=== PATIENT | female | born 1970 | race Caucasian/White ===

== ENCOUNTER 2016-09-05 21:01 | Inpatient (IN) ==
[2016-09-05] MEDS ORDERED: LORazepam 2 MG/1 ML VIAL IV STA (21:24)
[2016-09-05] MEDS ORDERED: methylPREDNISolone SOD SUC 125 MG/2 ML VIAL IV STA (21:24)
[2016-09-05] MEDS ORDERED: ASPIRIN 325 MG TABLET PO STA (21:24)
[2016-09-05] MEDS ORDERED: ONDANSETRON 4 MG/2 ML VIAL IV STA (21:24)
[2016-09-05] MEDS ORDERED: ALBUTEROL 2.5 MG/3 ML NEB RESP TX SCH (21:30)
[2016-09-05 21:49] LABS: ABG Base Excess 1.2 MMOL/L (-2.5-2.5); ABG HCO3 25.4 MMOL/L (20-26); ABG Oxygen Saturation 96.2 % (95-100); ABG PCO2 43.5 MM HG (35-48); ABG PH 7.391 (7.35-7.45); ABG PO2 87.3 MM HG (80-95); ABG TCO2 23.3 MMOL/L (23-27); Allen Test Positive; Pt O2 Delivery Device Room Air
[2016-09-05] MEDS ORDERED: ONDANSETRON 4 MG/2 ML VIAL ONE (22:07)
[2016-09-05] MEDS ORDERED: methylPREDNISolone SOD SUC 125 MG/2 ML VIAL ONE (22:07)
[2016-09-05] MEDS ORDERED: LORazepam 2 MG/1 ML VIAL ONE (22:07)
[2016-09-05] MEDS ORDERED: ASPIRIN 325 MG TABLET ONE (22:07)
[2016-09-05 22:21] LABS: Basophils % 0.3 % (0.0-0.8); Eosinophils # 0.1 10*3/uL (0.0-0.87); Eosinophils % 1.1 % (0.00-10.9); Hematocrit 38.9 VOL% (35.7-47.0); Hemoglobin 13.3 GM/DL (12.0-16.0); Immature Granulocytes % 0.4 %; Immature Granulocytes Absolute 0.03 #; Lymphocytes # 3.6 10*3/uL (1.4-4.0); Lymphocytes % 48.1 % (21.3-54.2); Mean Corpuscular HGB Conc 34.2 GM/DL (32-36); Mean Corpuscular Hemoglobin 35 PG (27-34); Mean Corpuscular Volume 101.3 FL (87-102); Mean Platelet Volume 10.5 FL (9.6-12.0); Monocytes # 0.5 10*3/uL (0.11-0.8); Monocytes % 6.7 % (1.7-12.7); Neutrophils # 3.2 10*3/uL (1.4-7.4); Neutrophils % 43.4 % (38.7-73.9); Platelet Count 308 T/CUMM (130-400); Red Blood Count 3.84 MC/CUMM (3.8-5.5); Red Cell Distribution Width 13.3 % (9.3-17.3); White Blood Count 7.5 T/CUMM (4-12)
--- NOTE | 2016-09-05 22:21 | XRay Report ---
XR chest 2V Indication: Shortness of breath. Chest 2 views: Comparison 08/07/2012. The heart size and mediastinal contour are normal. The lungs and pleural spaces are clear. Bones are unremarkable. Impression: Negative chest. PROCEDURE INTERPRETED AT [facility] DEPARTMENT OF RADIOLOGY Final Report Signed by: Michael Mensah M.D.
[2016-09-05 22:31] LABS: Apearance,Urine CLOUDY (Clear); Urine Color Yellow (Yellow); Urine Specific Gravity 1.019 (1.001-1.035)
[2016-09-05 22:32] LABS: Bacteria,Urine Moderate /HPF (Few); Bilirubin,Urine Negative (Negative); Blood, Urine Negative (Negative); Glucose,Urine (UA) Negative (Negative); Ketones,Urine Negative (Negative); Nitrite,Urine Positive (Negative); Protein,Urine Negative; RBC,Urine 7 /HPF (0-4); Renal Epithelial Cells,Urine Occasional /HPF (<1); Squamous Epithelial Cell,Urine Few /HPF (0-10); Urine Urobilinogen < 2.0 EU/DL (0.2-1.0); WBC,Urine 10 /HPF (0-6)
[2016-09-05 22:34] LABS: D-Dimer 1.2 MG/L FEU; INR 0.9; PT Patient Result 9.6 SECS
[2016-09-05 22:42] LABS: Barbiturates Screen,Urine Negative (Negative); Benzodiazepines Screen,Urine Positive (Negative); Cannabinoid Screen,Urine Positive (Negative); Opiate Screen,Urine Positive (Negative); Phencyclidine Screen,Urine Negative (Negative)
[2016-09-05 22:50] LABS: Alanine Aminotransferase 19 U/L (13-56); Albumin 3.2 G/DL (3.4-5.0); Alkaline Phosphatase 66 U/L (45-117); Aspartate Amino Transferase 18 U/L (0-37); Bilirubin,Total < 0.39 MG/DL (0.2-1.0); Blood Urea Nitrogen 12 MG/DL (7-18); Calcium 8.2 MG/DL (8.5-10.1); Glucose 88 MG/DL (74-106); Magnesium 1.8 MG/DL (1.8-2.4); Potassium 4.1 MMOL/L (3.5-5.1); Sodium 143 MMOL/L (136-145); Total Protein 6.2 G/DL (6.4-8.3); Troponin I Only < 0.015 NG/ML (0.00-0.045)
[2016-09-05] MEDS ORDERED: GENTAMICIN 0.3% OPH OINT 3.5 GM TUBE ONE (23:02)
[2016-09-05] MEDS ORDERED: cefTRIAXone 1,000 MG VIAL ONE (23:02)
[2016-09-05] MEDS ORDERED: LEVOFLOXACIN INJ 750 MG in PREMIX 1 EACH IV STA (23:02)
[2016-09-05] MEDS ORDERED: SODIUM CHLORIDE 0.9% 0 ML IV ONE (23:02)
[2016-09-05] MEDS ORDERED: LEVOFLOXACIN INJ 150 ML IV ONE (23:03)
[2016-09-05] MEDS ORDERED: GENTAMICIN 0.3% OPH OINT 3.5 GM TUBE LEFT EYE STA (23:06)
--- NOTE | 2016-09-05 23:09 | Emergency Department Note ---
Henry Ann Brittany, am scribing for, and in the presence of, Jhon Hess MD 21:28. Jimena Ann Charles R, MD, personally performed the services described in this documentation, ascribed by Mary Figueroa in my presence, and it is both accurate and complete . Arrival - Arrival Chief Complaint: Shortness of Breath Stated Complaint: sob ED Nursing Triage Note: Patient to triage with c/o SOB/CP x 3 days and panic attacks. Patient wakes up out of her sleep gasping for air. Patient has COPD and is a smoker. Mode of Arrival: Ambulatory Limitations: No Limitations Source: Patient, RN Notes Reviewed Time Seen by Provider: 09/05/16 21:17 - History of Present Illness HPI Narrative: Patient is a 45 y/o white female presenting to the ED with c/o CP and SOB with an onset of 2 days. Patient reports that chest pain occurs mid-sternally, occurring most often upon exertional activities such as walking, but is better at rest. She has had some anxiety attacks as well, contributing these to recent onset of these symptoms. She often wakes out of her sleep short of breath and gasping for air. She denies having any associated diaphoresis, nausea, vomiting , arm pain, or neck pain. Patient complains of some left eye pain with associated redness and irritation that has been ongoing for several days. She is a current everyday smoker. Patient has no other complaint/pain in the ED at this time. Onset (ago): day(s) (2) Consistency: constant Severity: moderate Severity scale (1-10): 6 Quality: aching Date of Last Menstrual Period: HYST Allergies/Adverse Reactions: Allergies Allergy/AdvReac Type Severity Reaction Status Date / Time Penicillins AdvReac RASH Verified 09/05/16 21:12 sulfamethoxazole AdvReac RASH Verified 09/05/16 21:12 [From Bactrim] trimethoprim [From Bactrim] AdvReac RASH Verified 09/05/16 21:12 Home Medications: Home Medications Medication Instructions Recorded Confirmed Type No Known Home Medications [No 09/05/16 09/05/16 History Known Home Medications] Review of System - Review of System 12 point system: reviewed and no additional remarkable complaints except as stated - Review of System Constitutional: Absent: chills, diaphoresis, fever Eyes: Present: pain (left), redness (left). Absent: vision change Head/Ears/Nose/Throat: Absent: nasal drainage, sore throat Respiratory: Present: respiratory distress Cardiovascular: Present: chest pain Gastrointestinal: Absent: abdominal pain, nausea, vomiting, diarrhea, constipation Genitourinary female: Absent: dysuria, frequency, urgency Musculoskeletal: Absent: arm pain, back pain, leg pain, neck pain Skin: Absent: rash Neurological: Absent: headache Psychiatric: Present: anxiety. Absent: depression Medical,Surgical,& Family Hx - Medical History Psychological: History of: Depression Endocrine: History of: Thyroid Disorder Respiratory: History of: COPD Gastrointestinal: History of: Hepatitis (Hep C), GI Problems (hiatal hernia) - Surgical History Reproductive Surgeries: Surgical HX of;: Hysterectomy - Family History Family History: noncontributory - Social History Smoking Status: Current every day smoker Frequency of Alcohol Use: Occasionally Type of Drug Use: None Exam Vital Signs: Vital Signs Temperature 98.2 F 09/05/16 21:04 Pulse Rate 112 H 09/05/16 22:00 Respiratory Rate 22 09/05/16 22:00 Blood Pressure 110/70 09/05/16 22:00 O2 Sat by Pulse Oximetry 97 09/05/16 22:00 - General General appearance: alert, in no apparent distress, other (smells of cigarettes) - Head Head exam: Present: atraumatic, normocephalic, normal inspection - Eye Eye exam: Present: PERRL, EOMI, conjunctival injection (left eye has a conjunctival injection, appears to be pink eye, irritated, no drainage noted) - ENT ENT exam: Present: normal exam, normal oropharynx - Neck Neck exam: Present: normal inspection, full ROM, trachea midline - Chest Chest inspection: Present: symmetric chest wall rise. Absent: normal inspection (barrel chest) - Respiratory Respiratory exam: Present: rhonchi (harsh rhonchi bilaterally), wheezes ( bilaterally). Absent: normal lung sounds bilaterally (decreased breath sounds bilaterally) - Cardiovascular Cardiovascular exam: Present: normal rhythm, tachycardia, normal heart sounds. Absent: regular rate - Abdominal Exam Abdominal exam: Present: soft, normal bowel sounds. Absent: tenderness - Extremities Exam Extremities exam: Present: normal inspection - Back Exam Back exam: Present: normal inspection - Neurological Exam Neurological exam: Present: alert, oriented X3, CN II-XII intact. Absent: motor sensory deficit - Psychiatric Psychiatric exam: Present: normal affect, normal mood - Skin Skin exam: Present: warm, dry Course - Reevaluation(s) Reevaluation #1: Patient was reevaluated. I had a long talk with her about her substance abuse. She is positive for marijuana opiates and benzos. States she is ran out of her benzodiazepines and she takes pain medication even though she has no doctor he has had no prescription form. She is also positive for cannabis which she states she takes recreational.. I advised the patient that we do not euthanize patient down here we do not give heavy narcotics include opiates and benzodiazepines when they are he taken them including illegal drugs like marijuana. I did treat her anxiety tonight with him Ativan IV I did give her pain medication by mouth. Patient has difficulty breathing I told her by giving her too many narcotics she can actually stop breathing and we did not want to do that. Patient also was treated for her left conjunctivitis in her eye with gentamicin ointment. After explaining all this to the patient she states she will be compliant and she will stay for admission to the hospital while we treat her COPD exacerbation and a urinary tract infection along with her conjunctivitis but we will not give her heavy doses of narcotics that she is asking for because of the dangers they can cause especially with her breathing. Time: 23:07 - Consultations Consultation #1: Hospitalist will admit patient Time: 23:07 Results - Labs CBC & BMP: 09/05/16 21:24 09/05/16 21:24 Lab Results: I have reviewed the patients labs Labs: Laboratory Tests 09/05/16 21:34 ABG pH 7.391 ABG pCO2 43.5 ABG pO2 87.3 ABG HCO3 25.4 ABG Total CO2 23.3 ABG O2 Saturation 96.2 ABG Base Excess 1.2 FiO2 21.00 Laboratory Tests 09/05/16 09/05/16 21:24 22:02 WBC 7.5 RBC 3.84 Hgb 13.3 Hct 38.9 MCH 35 H Plt Count 308 Urine Color Yellow Urine Appearance Cloudy Urine pH 5.0 Ur Specific [place] 1.019 Urine Protein Negative Urine Glucose (UA) Negative Urine Ketones Negative Urine Blood Negative Urine Nitrate Positive H Urine Bilirubin Negative Urine Urobilinogen < 2.0 H Urine Leukocytes Small H Urine RBC 7 Urine WBC 10 Ur Squamous Epith Cells Few Ur Renal Epithelial Cell Occasional Urine Bacteria Moderate Laboratory Tests 09/05/16 21:24 INR 0.9 PT Patient/Control Mix 9.6 D-Dimer, Quantitative 1.2 Laboratory Tests 09/05/16 09/05/16 09/05/16 21:24 22:02 22:02 Sodium 143 Potassium 4.1 Chloride 106 Carbon Dioxide 28 Anion Gap 13.1 BUN 12 Creatinine 0.80 GFR Calculation 75 BUN/Creatinine Ratio 15.00 Glucose 88 Calculated Osmolality 283.0 Calcium 8.2 L Magnesium 1.8 Total Bilirubin < 0.39 AST 18 ALT 19 Alkaline Phosphatase 66 Troponin I < 0.015 Total Protein 6.2 L Albumin 3.2 L Globulin 3.0 Albumin/Globulin Ratio 1.0 L Urine Color Yellow Urine Appearance Cloudy Urine pH 5.0 Ur Specific [place] 1.019 Urine Protein Negative Urine Glucose (UA) Negative Urine Ketones Negative Urine Blood Negative Urine Nitrate Positive H Urine Bilirubin Negative Urine Urobilinogen < 2.0 H Urine Leukocytes Small H Urine RBC 7 Urine WBC 10 Ur Squamous Epith Cells Few Ur Renal Epithelial Cell Occasional Urine Bacteria Moderate Urine Opiates Screen Positive H Ur Barbiturates Screen Negative Ur Phencyclidine Scrn Negative U Amphetamine/Methamph Negative U Benzodiazepines Scrn Positive H U Cocaine Metab Screen Negative U Cannabinoids Screen Positive H - Diagnostic Findings Procedure: Chest x-ray: report reviewed by me (Negative chest.) Disposition Clinical Impression: Acute exacerbation of chronic obstructive airways disease, Acute dyspnea, Left conjunctivitis, UTI (urinary tract infection), Tobacco abuse, Cannabis abuse, Generalized anxiety disorder, Polysubstance abuse Case discussed with: patient, patient's family Disposition: Still a Patient Condition: Stable Time of Disposition: 23:04
--- NOTE | 2016-09-05 23:40 | Hospitalist History & Physical ---
Assessment and Plan (1) Acute dyspnea Status: Acute Current Visit: Yes (2) Acute exacerbation of chronic obstructive airways disease Status: Acute Current Visit: Yes (3) Generalized anxiety disorder Status: Acute Current Visit: Yes (4) Left conjunctivitis Status: Acute Current Visit: Yes (5) Polysubstance abuse Status: Acute Current Visit: Yes (6) Tobacco abuse Status: Acute Current Visit: Yes (7) UTI (urinary tract infection) Status: Acute Assessment and plan: Our plan for this patient will be admitting her to our service will schedule her on breathing treatments and steroids. Patient has a high expectation for treating her pain. IV pain medicine will not be used for this patient. Patient will also be placed on antibiotics and we will treat her urinary tract infection. Current Visit: Yes History of Present Illness Chief complaint: Shortness of breath History of present illness: Ms. Mayberry is a 45 year old female with past medical history significant for anxiety, chronic back pain, thyroid disorder, and depression who presents with shortness of breath 2-1/2 days. She reports that her wheezing is increased. She has been feeling hot. She is been having a productive cough with green sputum. Patient also is complaining about drainage from her left eye. I was consulted to admit her. Home Medications Medication Instructions Recorded Confirmed Type No Known Home Medications [No 09/05/16 09/05/16 History Known Home Medications] Allergies Allergy/AdvReac Type Severity Reaction Status Date / Time Penicillins AdvReac RASH Verified 09/05/16 21:12 sulfamethoxazole AdvReac RASH Verified 09/05/16 21:12 [From Bactrim] trimethoprim [From Bactrim] AdvReac RASH Verified 09/05/16 21:12 Medical,Surgical,& Family Hx - Medical History Psychological: History of: Depression Endocrine: History of: Thyroid Disorder Respiratory: History of: COPD Gastrointestinal: History of: Hepatitis (Hep C), GI Problems (hiatal hernia) - Surgical History Reproductive Surgeries: Surgical HX of;: Hysterectomy - Family History Family History: Reports;: Family Cancer, Family Heart Disease, Family Hypertension - Social History Smoking Status: Current every day smoker Frequency of Alcohol Use: Occasionally Type of Drug Use: None 12 point system: reviewed and no additional remarkable complaints except as stated Exam - Constitutional Vitals: Period Temp Pulse Resp BP Sys/Maddox Pulse Ox Last 24 Hr 98.2 F-98.2 F 108-114 19-22 110-130/70-91 97-98 - General General appearance: alert, in no apparent distress - Head Head exam: Present: atraumatic, normocephalic, normal inspection - Eye Eye exam: Present: PERRL, EOMI, conjunctival injection - ENT ENT exam: Present: normal exam, normal oropharynx - Neck Neck exam: Present: normal inspection, full ROM, trachea midline - Chest Chest inspection: Present: symmetric chest wall rise. - Respiratory Respiratory exam: Harsh rhonchi bilaterally and wheezing - Cardiovascular Cardiovascular exam: Present: normal rhythm, tachycardia, normal heart sounds. Absent: regular rate - Abdominal Exam Abdominal exam: Present: soft, normal bowel sounds. Absent: tenderness - Extremities Exam Extremities exam: Present: normal inspection - Back Exam Back exam: Present: normal inspection - Neurological Exam Neurological exam: Present: alert, oriented X3, CN II-XII intact. Absent: motor sensory deficit - Psychiatric Psychiatric exam: Present: normal affect, normal mood - Skin Skin exam: Present: warm, dry Results - Labs CBC & BMP: 09/05/16 21:24 09/05/16 21:24
[2016-09-06] MEDS ORDERED: ALBUTEROL 1.25 MG/3 ML NEB RESP TX PRN (00:22)
[2016-09-06] MEDS ORDERED: ONDANSETRON 4 MG/2 ML VIAL IV PRN (00:22)
[2016-09-06] MEDS ORDERED: NICOTINE 21 MG/24 HR PATCH TRANSDERM PRN (00:22)
[2016-09-06] MEDS: ALBUTEROL/IPRATROPIUM 3 ML NEB RESP TX SCH ×3 (00:30→12:45)
[2016-09-06] MEDS: ALPRAZolam 0.25 MG TABLET PO PRN ×3 (00:48→11:22)
[2016-09-06] MEDS: SODIUM CHLORIDE 0.9% 1,000 ML IV SCH ×2 (00:56→09:50)
[2016-09-06] MEDS ORDERED: GENTAMICIN 0.3% OPH OINT 3.5 GM TUBE RIGHT EYE SCH (02:00)
[2016-09-06] MEDS: GENTAMICIN 0.3% OPH SOLN 5 ML BOTTLE LEFT EYE SCH ×4 (03:46→15:37)
--- NOTE | 2016-09-06 06:03 | EKG Report ---
Stationary ECG Study [facility] ER Test Date: 09/05/2016 9:09:41 PM Pat Name: SELMA RAMON Department: Room: 540 Gender: F Health And Physical Education Teacher: Sayda : 1970 Requested by: Jhon Montejo Order Number: [id number] Reading MD: ELIER LOWE Intervals [place] Rate: 110 P: 67 [place]: 154 QRS: 78 QRSD: 78 T: 67 QT: 330 QTc: 395 Interpretive Statements SINUS TACHYCARDIA POOR QUALITY BASELINE Electronically Signed On 09-06-16 17:11:17 CDT by ELIER LOWE [email or web address]
[2016-09-06] MEDS: methylPREDNISolone SOD SUC 125 MG/2 ML VIAL IV SCH ×2 (06:13→15:37)
[2016-09-06 06:45] LABS: Basophils % 0.2 % (0.0-0.8); Hematocrit 35.7 VOL% (35.7-47.0); Hemoglobin 11.6 GM/DL (12.0-16.0); Immature Granulocytes % 0.5 %; Immature Granulocytes Absolute 0.03 #; Lymphocytes # 0.7 10*3/uL (1.4-4.0); Lymphocytes % 10.1 % (21.3-54.2); Mean Corpuscular HGB Conc 32.5 GM/DL (32-36); Mean Corpuscular Hemoglobin 33 PG (27-34); Mean Corpuscular Volume 100.8 FL (87-102); Mean Platelet Volume 10.8 FL (9.6-12.0); Monocytes # 0.1 10*3/uL (0.11-0.8); Monocytes % 1.4 % (1.7-12.7); Neutrophils # 5.6 10*3/uL (1.4-7.4); Neutrophils % 87.8 % (38.7-73.9); Platelet Count 290 T/CUMM (130-400); Red Blood Count 3.54 MC/CUMM (3.8-5.5); Red Cell Distribution Width 13.2 % (9.3-17.3); White Blood Count 6.4 T/CUMM (4-12)
[2016-09-06 07:07] LABS: Hypochromasia 1+; Lymphocytes 11 % (20-55); Platelet Estimate Adequate; Segmented Neutrophils 89 % (50-85); Total Cells Counted 100
[2016-09-06 07:16] LABS: Albumin 2.9 G/DL (3.4-5.0); Bilirubin,Total 0.9 MG/DL (0.2-1.0); Calcium 8.4 MG/DL (8.5-10.1); Osmolality,Calculated 286.1 MOS/KG (273-304); Potassium 4.5 MMOL/L (3.5-5.1); Risk Ratio 2.91; Total Protein 5.7 G/DL (6.4-8.3); VLDL CHOLESTEROL 16.2 MG/DL
--- NOTE | 2016-09-06 07:59 | EKG Report ---
Stationary ECG Study [facility] Test Date: 09/06/2016 7:58 AM Pat Name: SELMA RAMON Department: Room: 540 Gender: F Petroleum Production Engineer: MARCELO : 1970 Requested by: Jhon Montejo Order Number: [id number] Reading MD: OWEN MARIE Intervals [place] Rate: 97 P: 71 [place]: 154 QRS: 70 QRSD: 78 T: 75 QT: 368 QTc: 423 Interpretive Statements SINUS RHYTHM Electronically Signed On 09-07-16 08:09:43 CDT by OWEN MARIE [email or web address]
--- NOTE | 2016-09-06 08:24 | XRay Report ---
XR chest 2V Indication: SOB Comparison: Chest x-ray dated September 05, 2016 Technique: Frontal and lateral views of the chest. Findings: The cardiomediastinal silhouette is stable in configuration. The lungs are mildly hyperexpanded. Question emphysematous change. No focal consolidation, pleural effusion, or pneumothorax. Visualized osseous and surrounding soft tissue structures appear grossly unchanged. IMPRESSION: Stable chest x-ray without acute cardiopulmonary process demonstrated. PROCEDURE INTERPRETED AT [facility] DEPARTMENT OF RADIOLOGY Final Report Signed by: Dr Macario Cornelius
[2016-09-06] MEDS ORDERED: ENOXAPARIN 40 MG/0.4 ML SYRINGE SUBCUT SCH (09:00)
[2016-09-06] MEDS ORDERED: PANTOPRAZOLE 40 MG TABLET PO SCH (09:00)
--- NOTE | 2016-09-06 10:07 | Pulmonology Consult Note ---
Assessment and Plan (1) Acute exacerbation of chronic obstructive airways disease Status: Acute Assessment and plan: Patient is admitted with a mild COPD exacerbation. She is not having any respiratory distress now and her lungs sound okay. She can probably go home on tapering steroids and some bronchodilators. She certainly needs to quit smoking. Current Visit: Yes (2) Tobacco abuse Status: Acute Assessment and plan: She says she is only smoking 3 cigarettes a day but she certainly needs to quit. Current Visit: Yes (3) Polysubstance abuse Status: Acute Assessment and plan: She had a positive drug screen from multiple medications. She may be having mild withdrawal. Current Visit: Yes History of Present Illness Chief complaint: Shortness of History of present illness: Ms. Mayberry is a 45 year old white female that is a smoker and has some chronic anxiety problems. She takes thyroid replacement. She came in with a couple days of coughing and shortness of breath. She was wheezing and felt more short of breath so she came to the emergency room. She was admitted with a mild exacerbation of her COPD. She says she smokes about 3 cigarettes a day. She says she is unable to buy any medicines. Home Medications Medication Instructions Recorded Confirmed Type No Known Home Medications [No 09/05/16 09/05/16 History Known Home Medications] Allergies Allergy/AdvReac Type Severity Reaction Status Date / Time Penicillins AdvReac RASH Verified 09/06/16 02:45 sulfamethoxazole AdvReac RASH Verified 09/06/16 02:45 [From Bactrim] trimethoprim [From Bactrim] AdvReac RASH Verified 09/06/16 02:45 - Constitutional Constitutional: Present: fatigue. Absent: chills, fever(s) - EENT Eyes: Absent: loss of vision Ears: Absent: decreased hearing Nose, mouth and throat: Absent: dysphagia, headache(s), sinus pressure - Cardiovascular Cardiovascular: Present: dyspnea. Absent: chest pain at rest, edema, orthopnea , palpitations - Respiratory Respiratory: Present: cough, dyspnea, wheezing. Absent: hemoptysis, change in phlegm color - Gastrointestinal Gastrointestinal: Absent: abdominal pain, change in bowel habits, dysphagia, nausea, vomiting - Genitourinary Genitourinary: Absent: difficulty urinating, dysuria, hematuria, urinary frequency - Musculoskeletal Musculoskeletal: Absent: arthralgias - Neurological Neurological: Absent: abnormal speech, focal weakness - Psychiatric Psychiatric: Present: anxiety Exam (Pulmonay) H&P - Constitutional Vitals: Period Temp Pulse Resp BP Sys/Maddox Pulse Ox Last 24 Hr 96.9 F-98.2 F 89-115 17-22 103-136/65-94 96-99 General appearance: normal weight, no acute distress (She is sitting in the room crying but is in no respiratory distress) - Head Head exam: Present: normal inspection, normocephalic - Eye Eye exam: Present: EOMI. Absent: scleral icterus Pupils: Present: YOGESH - ENT ENT exam: Present: normal exam - Neck Neck exam: Present: normal inspection. Absent: lymphadenopathy, thyromegaly - Respiratory Respiratory exam: Present: rhonchi, other (Her lungs sound reasonably clear at present.). Absent: accessory muscle use, rales, wheezes - Cardiovascular Cardiovascular exam: Present: regular rate and rhythm. Absent: gallop, systolic murmur - GI/Abdominal GI/Abdominal exam: Present: normal bowel sounds, soft. Absent: organomegaly, tenderness - Extremities Exam Extremities exam: Absent: calf tenderness, edema - Neurological Exam Neurological exam: Present: alert, oriented X3 - Psychiatric Psychiatric exam: Present: anxious - Skin Skin exam: Present: warm, dry Medical,Surgical,& Family Hx - Medical History Psychological: History of: Anxiety Disorders, Depression Endocrine: History of: Thyroid Disorder (hypoactive) Respiratory: History of: COPD Gastrointestinal: History of: Hepatitis (Hep C), GI Problems (hiatal hernia) - Surgical History Reproductive Surgeries: Surgical HX of;: Hysterectomy - Family History Family History: Reports;: Family Cancer, Family Heart Disease, Family Hypertension - Social History Smoking Status: Current every day smoker Frequency of Alcohol Use: Occasionally Type of Drug Use: Marijuana Results - Labs CBC & BMP: 09/06/16 06:03 09/06/16 06:03 Labs: Her PO2 is 87 with a PCO2 of 43 and a pH of 7.39 yesterday. - Diagnostic Findings Procedure: Chest x-ray: image reviewed by me, report reviewed by me (Chest x- ray suggest COPD changes but no infiltrates.)
[2016-09-06 11:10] VITALS: BP 104/71
--- NOTE | 2016-09-06 15:02 | Discharge Summary ---
Hospital Course - Hospital Course Hospital Course: Ms. Mayberry presented with shortness of breath and anxiety. She was evaluated by the admitting physician and determined to have mild COPD. She was admitted for treatment and was initiated on IV antibiotics and IV steroids with breathing treatments. She tolerated this well. Patient requested several times to leave the hospital floor to smoke which she was denied and became extremely anxious. Due to being denied to leave the hospital to smoke she threatened to leave AMA and at one point even to commit suicide. When I evaluated her, she adamantly denied she is suicidal or has suicidal thoughts. She even denied making that statement. Regardless, [facility] was [facility]. She was evaluated by [facility], which is our only method of psychiatric evaluation, and cleared from their perspective for discharge. She was offered treatment by [facility] and refused. She was given instructions how to seek care once discharged. By discharge, she had met maximum benefit of hospitalization. Treatment of her COPD exacerbation will occur on an outpatient with oral steroids and antibiotics. She was encouraged to discontinue smoking and nicotine patches were prescribed. I spent 45 minutes coordinating this discharge. - Time spent with patient Time with patient DS: Greater than 30 minutes Discharge Plan - Discharge Data Disposition: Disch To Home/Self Care Condition at Discharge: Stable Discharge Diet: advance to your usual diet Activity: resume usual activities as tolerated - Discharge Medications New Levofloxacin Tab [Levaquin Tab] 500 mg PO DAILY #6 tablet Nicotine 21 mg/24 Hr Patch [Nicoderm CQ 21 mg/24 hr Patch] 1 patch TRANSDERM DAILY PRN #30 patch PRN Reason: Nicotine Cravings predniSONE TAB [PredniSONE] 50 mg PO DAILY #4 tablet Ciprofloxacin HCl [Ciprofloxacin 0.3% Oph Soln] 2 drop BOTH EYES Q2H #5 ml - Follow Up or Referral - Forms/Instructions Instructions: Urinary Tract Infection in Women (GEN), Conjunctivitis (GEN) Exam - Constitutional Vitals: Period Temp Pulse Resp BP Sys/Maddox Pulse Ox Last 24 Hr 96.9 F-98.2 F 89-115 17-22 103-136/65-94 95-99 General appearance: normal weight, no acute distress - Head Head exam: Present: normal inspection, normocephalic, atraumatic - Eye Eye exam: Present: EOMI Pupils: Present: YOGESH - ENT ENT exam: Present: normal exam - Neck Neck exam: Present: normal inspection - Respiratory Respiratory exam: Present: clear to auscultation bilaterally. Absent: accessory muscle use, prolonged expiratory phase, wheezes - Cardiovascular Cardiovascular exam: Present: regular rate and rhythm. Absent: bradycardia, irregular rhythm, systolic murmur - GI/Abdominal GI/Abdominal exam: Present: normal bowel sounds. Absent: ascites, hypoactive bowel sounds, tenderness - Extremities Exam Extremities exam: Present: normal inspection Discharge Results Procedures and tests throughout hospitalization: Pending Orders 09/05/16 Urine Culture Routine 09/05/16 21:24 Blood Culture Stat Labs on day of discharge: Labs from last 24 hours 09/06/16 09/06/16 09/06/16 06:03 06:03 00:46 WBC 6.4 RBC 3.54 L Hgb 11.6 L Hct 35.7 MCV 100.8 MCH 33 MCHC 32.5 RDW 13.2 Plt Count 290 MPV 10.8 Neut % (Auto) 87.8 H Lymph % (Auto) 10.1 L Phelps % (Auto) 1.4 L Eos % (Auto) 0.0 Baso % (Auto) 0.2 Neut # (Auto) 5.6 Lymph # (Auto) 0.7 L Phelps # (Auto) 0.1 L Eos # (Auto) 0.0 Baso # (Auto) 0.0 Total Counted 100 Immature Gran % 0.5 Nucleated RBC % 0.0 Immature Gran # 0.03 Segmented Neutrophils 89 H Lymphocytes 11 L Nucleated RBCs # 0.00 Platelet Estimate Adequate Hypochromasia 1+ Morphology Comment INR PT Patient/Control Mix D-Dimer, Quantitative ABG pH ABG pCO2 ABG pO2 ABG HCO3 ABG Total CO2 ABG O2 Saturation ABG Base Excess FiO2 Sodium 142 Potassium 4.5 Chloride 110 H Carbon Dioxide 25 Anion Gap 11.5 BUN 18 Creatinine 0.70 GFR Calculation 89 BUN/Creatinine Ratio 25.00 H Glucose 139 H Calculated Osmolality 286.1 Calcium 8.4 L Magnesium 2.0 Total Bilirubin 0.90 AST 14 ALT 19 Alkaline Phosphatase 48 Troponin I B-Natriuretic Peptide Total Protein 5.7 L Albumin 2.9 L Globulin 2.8 Albumin/Globulin Ratio 1.0 L Triglycerides 81 Cholesterol 137 LDL Cholesterol 72.0 VLDL Cholesterol 16.2 HDL Cholesterol 47 Heart Disease Risk Ratio 2.91 Free T4 1.31 TSH 3rd Generation Urine Color Urine Appearance Urine pH Ur Specific [place] Urine Protein Urine Glucose (UA) Urine Ketones Urine Blood Urine Nitrate Urine Bilirubin Urine Urobilinogen Urine Leukocytes Urine RBC Urine WBC Ur Squamous Epith Cells Ur Renal Epithelial Cell Urine Bacteria Ur Culture Indicated? Urine Opiates Screen Ur Barbiturates Screen Ur Phencyclidine Scrn U Amphetamine/Methamph U Benzodiazepines Scrn U Cocaine Metab Screen U Cannabinoids Screen 09/06/16 09/05/16 09/05/16 00:45 22:02 22:02 WBC RBC Hgb Hct MCV MCH MCHC RDW Plt Count MPV Neut % (Auto) Lymph % (Auto) P[place]ps % (Auto) Eos % (Auto) Baso % (Auto) Neut # (Auto) Lymph # (Auto) Phelps # (Auto) Eos # (Auto) Baso # (Auto) Total Counted Immature Gran % Nucleated RBC % Immature Gran # Segmented Neutrophils Lymphocytes Nucleated RBCs # Platelet Estimate Hypochromasia Morphology Comment INR PT Patient/Control Mix D-Dimer, Quantitative ABG pH ABG pCO2 ABG pO2 ABG HCO3 ABG Total CO2 ABG O2 Saturation ABG Base Excess FiO2 Sodium Potassium Chloride Carbon Dioxide Anion Gap BUN Creatinine GFR Calculation BUN/Creatinine Ratio Glucose Calculated Osmolality Calcium Magnesium Total Bilirubin AST ALT Alkaline Phosphatase Troponin I B-Natriuretic Peptide Total Protein Albumin Globulin Albumin/Globulin Ratio Triglycerides Cholesterol LDL Cholesterol VLDL Cholesterol HDL Cholesterol Heart Disease Risk Ratio Free T4 TSH 3rd Generation 0.032 L Urine Color Yellow Urine Appearance Cloudy Urine pH 5.0 Ur Specific [place] 1.019 Urine Protein Negative Urine Glucose (UA) Negative Urine Ketones Negative Urine Blood Negative Urine Nitrate Positive H Urine Bilirubin Negative Urine Urobilinogen < 2.0 H Urine Leukocytes Small H Urine RBC 7 Urine WBC 10 Ur Squamous Epith Cells Few Ur Renal Epithelial Cell Occasional Urine Bacteria Moderate Ur Culture Indicated? Results to follow Urine Opiates Screen Positive H Ur Barbiturates Screen Negative Ur Phencyclidine Scrn Negative U Amphetamine/Methamph Negative U Benzodiazepines Scrn Positive H U Cocaine Metab Screen Negative U Cannabinoids Screen Positive H 09/05/16 09/05/16 09/05/16 21:34 21:24 21:24 WBC RBC Hgb Hct MCV MCH MCHC RDW Plt Count MPV Neut % (Auto) Lymph % (Auto) Phelps % (Auto) Eos % (Auto) Baso % (Auto) Neut # (Auto) Lymph # (Auto) Phelps # (Auto) Eos # (Auto) Baso # (Auto) Total Counted Immature Gran % Nucleated RBC % Immature Gran # Segmented Neutrophils Lymphocytes Nucleated RBCs # Platelet Estimate Hypochromasia Morphology Comment INR PT Patient/Control Mix D-Dimer, Quantitative ABG pH 7.391 ABG pCO2 43.5 ABG pO2 87.3 ABG HCO3 25.4 ABG Total CO2 23.3 ABG O2 Saturation 96.2 ABG Base Excess 1.2 FiO2 21.00 Sodium 143 Potassium 4.1 Chloride 106 Carbon Dioxide 28 Anion Gap 13.1 BUN 12 Creatinine 0.80 GFR Calculation 75 BUN/Creatinine Ratio 15.00 Glucose 88 Calculated Osmolality 283.0 Calcium 8.2 L Magnesium 1.8 Total Bilirubin < 0.39 AST 18 ALT 19 Alkaline Phosphatase 66 Troponin I < 0.015 B-Natriuretic Peptide 3 Total Protein 6.2 L Albumin 3.2 L Globulin 3.0 Albumin/Globulin Ratio 1.0 L Triglycerides Cholesterol LDL Cholesterol VLDL Cholesterol HDL Cholesterol Heart Disease Risk Ratio Free T4 TSH 3rd Generation Urine Color Urine Appearance Urine pH Ur Specific [place] Urine Protein Urine Glucose (UA) Urine Ketones Urine Blood Urine Nitrate Urine Bilirubin Urine Urobilinogen Urine Leukocytes Urine RBC Urine WBC Ur Squamous Epith Cells Ur Renal Epithelial Cell Urine Bacteria Ur Culture Indicated? Urine Opiates Screen Ur Barbiturates Screen Ur Phencyclidine Scrn U Amphetamine/Methamph U Benzodiazepines Scrn U Cocaine Metab Screen U Cannabinoids Screen 09/05/16 09/05/16 21:24 21:24 WBC 7.5 RBC 3.84 Hgb 13.3 Hct 38.9 MCV 101.3 MCH 35 H MCHC 34.2 RDW 13.3 Plt Count 308 MPV 10.5 Neut % (Auto) 43.4 Lymph % (Auto) 48.1 Phelps % (Auto) 6.7 Eos % (Auto) 1.1 Baso % (Auto) 0.3 Neut # (Auto) 3.2 Lymph # (Auto) 3.6 Phelps # (Auto) 0.5 Eos # (Auto) 0.1 Baso # (Auto) 0.0 Total Counted Immature Gran % 0.4 Nucleated RBC % 0.0 Immature Gran # 0.03 Segmented Neutrophils Lymphocytes Nucleated RBCs # 0.00 Platelet Estimate Hypochromasia Morphology Comment INR 0.9 PT Patient/Control Mix 9.6 D-Dimer, Quantitative 1.2 ABG pH ABG pCO2 ABG pO2 ABG HCO3 ABG Total CO2 ABG O2 Saturation ABG Base Excess FiO2 Sodium Potassium Chloride Carbon Dioxide Anion Gap BUN Creatinine GFR Calculation BUN/Creatinine Ratio Glucose Calculated Osmolality Calcium Magnesium Total Bilirubin AST ALT Alkaline Phosphatase Troponin I B-Natriuretic Peptide Total Protein Albumin Globulin Albumin/Globulin Ratio Triglycerides Cholesterol LDL Cholesterol VLDL Cholesterol HDL Cholesterol Heart Disease Risk Ratio Free T4 TSH 3rd Generation Urine Color Urine Appearance Urine pH Ur Specific [place] Urine Protein Urine Glucose (UA) Urine Ketones Urine Blood Urine Nitrate Urine Bilirubin Urine Urobilinogen Urine Leukocytes Urine RBC Urine WBC Ur Squamous Epith Cells Ur Renal Epithelial Cell Urine Bacteria Ur Culture Indicated? Urine Opiates Screen Ur Barbiturates Screen Ur Phencyclidine Scrn U Amphetamine/Methamph U Benzodiazepines Scrn U Cocaine Metab Screen U Cannabinoids Screen Preliminary micro results at discharge 09/05/16 Unknown Urine Culture - Preliminary Urine,Voided Gram Negative Rods DS: Provider Date of admission: 09/05/16 23:13 Primary care physician: . No PCP Attending physician on admission: Michael Bahena MD Consults: 09/06/16 00:22 Consult to Case Mgmt/Social Srvs [CONS] Routine Reason for Case Mgmt/Social Srvs: Discharge Planning Consult to Physician [CONS] Routine Comment: COPD Consulting Provider: Asif Bearden When should Consulting Provider be notified: In am Person Notified: Dmitriy Date Notified: 09/06/16 Time Notified: 09:14 Consult Notification Comment: 09/06/16 09:49 Consult to Case Mgmt/Social Srvs [CONS] Routine Reason for Case Mgmt/Social Srvs: Psychiatric Management Consult Comment: sucide consult Discharging clinician: Mallory Parrish MD Expected date of discharge: 09/06/16
[2016-09-06] MEDS ORDERED: LEVOFLOXACIN INJ 750 MG in PREMIX 1 EACH IV SCH (21:00)
== END 2016-09-06 15:00 | disposition home or self-care (01) | DRG 191 ==
LOC: N.ED 21:01 → SUATTDRO 23:13 → N.EDINP 23:13 → N.5E 23:33
PROVIDERS: ADMIT Internal Medicine; ATTEND Internal Medicine

== ENCOUNTER 2019-08-19 07:48 | Inpatient (IN) ==
[2019-08-19 08:43] LABS: Basophils % 0.7 % (0.0-0.8); Eosinophils # 0.1 10*3/uL (0.0-0.87); Eosinophils % 2.2 % (0.00-10.9); Hematocrit 35.9 VOL% (35.7-47.0); Hemoglobin 11.7 GM/DL (12.0-16.0); Immature Granulocytes % 0.2 %; Immature Granulocytes Absolute 0.01 #; Lymphocytes # 1.9 10*3/uL (1.4-4.0); Lymphocytes % 34.6 % (21.3-54.2); Mean Corpuscular HGB Conc 32.6 GM/DL (32-36); Mean Corpuscular Volume 103.5 FL (87-102); Monocytes % 7.8 % (1.7-12.7); Neutrophils % 54.5 % (38.7-73.9); Platelet Count 260 T/CUMM (130-400); Red Blood Count 3.47 MC/CUMM (3.8-5.5); Red Cell Distribution Width 14.4 % (9.3-17.3); White Blood Count 5.4 T/CUMM (4-12)
[2019-08-19 09:00] LABS: Barbiturates Screen,Urine Negative (Negative); Benzodiazepines Screen,Urine Positive (Negative); Cannabinoid Screen,Urine Positive (Negative); Opiate Screen,Urine Positive (Negative); Phencyclidine Screen,Urine Negative (Negative)
[2019-08-19 09:01] LABS: Amorphous Crystals,Urine Few /HPF (Few); Apearance,Urine Slightly Hazy (Clear); Bilirubin,Urine Negative (Negative); Blood, Urine Negative (Negative); Glucose,Urine (UA) Negative (Negative); Ketones,Urine Negative (Negative); Mucus,Urine Many /LPF (Occasional); Nitrite,Urine Negative (Negative); Protein,Urine Negative; RBC,Urine 1 /HPF (0-4); Squamous Epithelial Cell,Urine Occasional /HPF (0-10); Urine Color Yellow (Yellow); Urine Specific Gravity 1.027 (1.001-1.035); WBC,Urine 1 /HPF (0-6)
[2019-08-19 09:02] LABS: Band Neutrophils 1 % (0-10); Eosinophils 5 % (0-10); Lymphocytes 33 % (20-55); Segmented Neutrophils 51 % (50-85); Total Cells Counted 100
[2019-08-19 09:03] LABS: Hypochromasia 1+; Macrocytosis Slight
[2019-08-19 09:05] LABS: Alanine Aminotransferase 25 U/L (13-56); Albumin 3.5 G/DL (3.4-5.0); Alkaline Phosphatase 48 U/L (45-117); Aspartate Amino Transferase 25 U/L (0-37); Bilirubin,Total < 0.39 MG/DL (0.2-1.0); Blood Urea Nitrogen 13 MG/DL (7-18); Calcium 8.4 MG/DL (8.5-10.1); Estimated Glom Filtration Rate 99 ML/MIN; Glucose 86 MG/DL (74-106); Osmolality,Calculated 277.4 MOS/KG (273-304); Total Protein 6.9 G/DL (6.4-8.3)
[2019-08-19] MEDS ORDERED: ALBUTEROL 2.5 MG/3 ML NEB RESP TX PRN (09:40)
[2019-08-19] MEDS: ENOXAPARIN 40 MG/0.4 ML SYRINGE SUBCUT SCH (10:15)
[2019-08-19] MEDS ORDERED: POTASSIUM CHLORIDE 20 MEQ TABLET PO ONE (11:09)
[2019-08-19] MEDS ORDERED: CALCIUM GLUCONATE 2,000 MG in SODIUM CHLORIDE 0.9% 100 ML IV ONE (11:09)
[2019-08-19] MEDS: SODIUM CHLORIDE 0.9% 1,000 ML IV SCH (11:52)
[2019-08-19] MEDS: FOLIC ACID 1 MG TABLET PO SCH (15:34)
[2019-08-19] MEDS: THIAMINE 100 MG TABLET PO SCH (15:34)
[2019-08-20] MEDS: SODIUM CHLORIDE 0.9% 1,000 ML IV SCH ×2 (02:58→11:16)
[2019-08-20 05:55] LABS: Basophils % 0.9 % (0.0-0.8); Eosinophils # 0.2 10*3/uL (0.0-0.87); Eosinophils % 3.4 % (0.00-10.9); Hematocrit 34.6 VOL% (35.7-47.0); Hemoglobin 11.2 GM/DL (12.0-16.0); Immature Granulocytes % 0.2 %; Immature Granulocytes Absolute 0.01 #; Lymphocytes # 1.9 10*3/uL (1.4-4.0); Lymphocytes % 42.3 % (21.3-54.2); Mean Corpuscular HGB Conc 32.4 GM/DL (32-36); Mean Corpuscular Volume 102.4 FL (87-102); Mean Platelet Volume 9.9 FL (9.6-12.0); Neutrophils % 45.2 % (38.7-73.9); Platelet Count 284 T/CUMM (130-400); Red Blood Count 3.38 MC/CUMM (3.8-5.5); Red Cell Distribution Width 14.5 % (9.3-17.3); White Blood Count 4.4 T/CUMM (4-12)
[2019-08-20 06:12] LABS: Albumin 2.7 G/DL (3.4-5.0); Bilirubin,Total 0.9 MG/DL (0.2-1.0); Calcium 8.1 MG/DL (8.5-10.1); Osmolality,Calculated 286.7 MOS/KG (273-304); Total Protein 5.5 G/DL (6.4-8.3)
[2019-08-20 06:27] LABS: Eosinophils 2 % (0-10); Lymphocytes 41 % (20-55); Segmented Neutrophils 51 % (50-85); Total Cells Counted 100
[2019-08-20 06:28] LABS: Hypochromasia 1+; Macrocytosis Slight; Ovalocytes Slight; Platelet Estimate Adequate
[2019-08-20] MEDS: FOLIC ACID 1 MG TABLET PO SCH (09:34)
[2019-08-20] MEDS: THIAMINE 100 MG TABLET PO SCH (09:34)
[2019-08-20] MEDS: ENALAPRIL 2.5 MG/2 ML VIAL IV SCH ×2 (09:35→14:30)
[2019-08-20] MEDS: ENOXAPARIN 40 MG/0.4 ML SYRINGE SUBCUT SCH (10:22)
[2019-08-20 16:21] VITALS: BP 163/109
== END 2019-08-20 16:45 | DRG 917 ==
LOC: EDBD → EDUNIT# → N.ED 07:48 → SUPCPDRO 09:40 → N.EDINP 09:40 → SUATTDRO 09:40 → N.3E 14:44
PROVIDERS: ADMIT Internal Medicine; ATTEND Family Medicine